=== PATIENT | female | born 1990 | race African-American/Black ===

== ENCOUNTER 2016-06-24 20:16 | Inpatient (IN) | payer SELFPAY ==
[~2016-06-24] VITALS: Ht 162.6 cm; Wt 68.0 kg
[2016-06-24] MEDS ORDERED: ALBUTEROL SULF 2.5 MG/0.5ML(0.5%) NEB SOLN HHN ONE (20:30)
[2016-06-24] MEDS ORDERED: IPRATROPIUM BROM 0.5 MG/2.5ML INH SOL HHN ONE (20:30)
[2016-06-24] MEDS ORDERED: methylPREDNISolone SOD SUCC 125 MG/2 ML VL IV ONE (20:30)
[2016-06-24] MEDS ORDERED: LORazepam 2MG/ML-1ML VIAL IV ONE (20:30)
[2016-06-24 21:02] LABS: Basophils # (auto) 0.1 uL; Basophils % (auto) 0.4 % (0.0-2.0); Eosinophils # (auto) 0.3 uL; Hematocrit 44.7 % (36.0-46.0); Hemoglobin 14.7 g/dL (12.2-16.2); Lymphocytes # (auto) 2.3 uL; Lymphocytes % (auto) 17.4 % (10.0-50.0); Mean Corpuscular Hemoglobin 30.5 pg (28.0-32.0); Mean Corpuscular Hgb Conc. 32.8 g/dL (32.0-36.0); Mean Platelet Volume 8.1 fL (7.4-10.4); Monocytes % (auto) 7.9 % (0.0-12.0); Neutrophils # (auto) 9.4 uL; Neutrophils % (auto) 72.3 % (37.0-80.0); Platelet Count (auto) 356 10^3/uL (140-450); Red Cell Distribution Width 13.5 % (11.6-16.0)
[2016-06-24 21:22] LABS: BUN/Creatinine Ratio 12.4; Bilirubin, Total 1.3 mg/dL (0.2-1.0); Calcium 9.1 mg/dL (8.5-10.1); Magnesium 2.4 mg/dL (1.6-2.6); Potassium 3.7 mmol/L (3.5-5.1); Total Protein 8.1 g/dL (6.4-8.2)
[2016-06-24] MEDS ORDERED: TEMAZEPAM 15 MG CAP PO PRN (22:45)
[2016-06-24] MEDS ORDERED: MORPHINE SULF INJ 2 MG/ML SYRINGE 1ML IV PRN ×2 (22:45)
[2016-06-24] MEDS ORDERED: HYDROcodone-ACET 5/325MG TAB PO PRN (22:45)
[2016-06-24] MEDS ORDERED: NITROGLYCERIN 0.4 MG SL TAB SL PRN (22:45)
[2016-06-24] MEDS ORDERED: ONDANSETRON HCL 4 MG/2 ML VIAL IV PRN (22:45)
[2016-06-24] MEDS ORDERED: ACETAMINOPHEN 325 MG TAB PO PRN (22:45)
[2016-06-24] MEDS ORDERED: cefTRIAXone 1GM/50ML D5W 50 ML IV ONE (22:45)
[2016-06-24] MEDS ORDERED: LORazepam 0.5 MG TAB PO PRN (22:45)
[2016-06-24 22:59] VITALS: BP 148/86
[2016-06-24 23:40] VITALS: BP 129/82
[2016-06-24] MEDS: ALBUTEROL SULF 2.5 MG/0.5ML(0.5%) NEB SOLN NEB PRN (23:40)
[2016-06-24] MEDS: IPRATROPIUM BROM 0.5 MG/2.5ML INH SOL NEB PRN (23:40)
[2016-06-25 05:00] VITALS: BP 123/78
[2016-06-25 06:13] LABS: Hematocrit 42.7 % (36.0-46.0); Hemoglobin 14.1 g/dL (12.2-16.2); Mean Corpuscular Hemoglobin 30.8 pg (28.0-32.0); Mean Corpuscular Volume 93.4 fL (80.0-100.0); Mean Platelet Volume 8.7 fL (7.4-10.4); Platelet Count (auto) 301 10^3/uL (140-450); Red Cell Distribution Width 13.1 % (11.6-16.0); White Blood Cell 12.7 10^3/uL (4.4-10.8)
[2016-06-25 06:19] LABS: Metamyelocytes % 0; Myelocytes % 0; Promyelocytes % 0; Reactive Lymphocytes 0
[2016-06-25 06:51] LABS: Albumin 3.7 g/dL (3.4-5.0); BUN/Creatinine Ratio 14.1; Calcium 9.2 mg/dL (8.5-10.1)
[2016-06-25 06:54] LABS: Bilirubin, Total 0.7 mg/dL (0.2-1.0); Total Protein 7.8 g/dL (6.4-8.2)
[2016-06-25 07:24] LABS: Platelet Estimate Adequate; RBC Morphology Normal
[2016-06-25] MEDS: IPRATROPIUM BROM 0.5 MG/2.5ML INH SOL NEB PRN (08:43)
[2016-06-25] MEDS: ALBUTEROL SULF 2.5 MG/0.5ML(0.5%) NEB SOLN NEB PRN (08:44)
[2016-06-25 09:00] VITALS: BP 131/77
[2016-06-25] MEDS ORDERED: methylPREDNISolone SOD SUCC 125 MG/2 ML VL IV SCH (10:00)
[2016-06-25] MEDS ORDERED: ENOXAPARIN SOD 40 MG/0.4 ML SYRINGE SC SCH (10:00)
[2016-06-25] MEDS ORDERED: ENOXAPARIN SOD 30 MG/0.3 ML SYRINGE SC SCH (10:00)
[2016-06-25] MEDS ORDERED: FAMOTIDINE 20 MG TAB PO SCH (10:00)
[2016-06-25] MEDS ORDERED: IPR002IS NEB (11:54)
[2016-06-25] MEDS ORDERED: PRED-559 PO (11:54)
[2016-06-25] MEDS ORDERED: ALB5IS NEB (11:54)
[2016-06-25] MEDS ORDERED: LEVO500T3 PO (11:54)
[2016-06-25 12:21] VITALS: BP 131/77
[2016-06-25 12:44] VITALS: BP 126/79
[2016-06-25] MEDS ORDERED: cefTRIAXone 1GM/50ML D5W 50 ML IV SCH (22:00)
== END 2016-06-25 12:48 | disposition home health service (06) | DRG 189 ==
LOC: ER 20:25 → TELE-WESTW 20:26
PROVIDERS: ADMIT Internal Medicine; ATTEND Internal Medicine
PROC: 5A09357 Assistance with Respiratory Ventilation, Less than 24 Consecutive Hours, Continuous Positive Airway Pressure (ICD-10-PCS; principal; 2016-06-24)
DX: J96.01 Acute respiratory failure with hypoxia (principal); J45.52 Severe persistent asthma with status asthmaticus; F17.210 Nicotine dependence, cigarettes, uncomplicated; D72.829 Elevated white blood cell count, unspecified
CPT/HCPCS: 36415; 36600; 71010; 80053; 82805; 83735; 85007; 85025; 85027; 93005; 94640; 94660; 96365; 96375; 99291; J0696